=== PATIENT | female | born 1960 | race Caucasian/White ===

== ENCOUNTER 2016-05-26 09:39 | Emergency (ER) | payer OTHER, MEDICARE ==
[2016-05-26 09:58] LABS: ABSOLUTE BASOPHIL COUNT 0.1 /CUMM (0.0-0.2); ABSOLUTE EOSINOPHIL COUNT 0.5 /CUMM (0.0-0.7); ABSOLUTE GRANULOCYTE CT 5.1 /CUMM (1.4-6.5); ABSOLUTE LYMPH COUNT 4.3 /CUMM (1.2-3.4); ABSOLUTE MONOCYTE COUNT 0.5 /CUMM (0.10-0.60); BASOPHIL % 0.5 % (0.0-2.0); EOSINOPHIL % 4.9 % (0-5); GRANULOCYTE % 48.8 % (42.2-75.2); HEMATOCRIT 44.2 % (37-47); MEAN CORPUSCULAR HGB 29.6 PG (27.0-31.0); MEAN CORPUSCULAR HGB CONC 33.7 G/DL (33.0-37.0); MEAN CORPUSCULAR VOLUME 87.8 FL (81.0-99.0); MEAN PLATELET VOLUME 7.4 FL (7.4-10.4); PLATELET COUNT 284 /CUMM (130-400); RBC DISTRIBUTION WIDTH 13.5 % (11.5-14.5); RED BLOOD CELL CT 5.03 /CUMM (4.20-5.40); WHITE BLOOD CELL COUNT 10.5 /CUMM (4.8-10.8)
[2016-05-26 11:33] VITALS: BP 153/80
--- NOTE | 2016-05-26 12:11 | ED GI/GU/ABDOMINAL COMPLAINT ---
History of Present Illness General Chief Complaint: Abdominal Pain/Flank Pain Stated Complaint: R SIDE FLANK PAIN RADIATING INTO BACK Source: patient Exam Limitations: no limitations Vital Signs & Intake/Output Vital Signs & Intake/Output Vital Signs Date Time Temp Pulse Resp B/P Pulse O2 O2 Flow FiO2 Ox Delivery Rate 05/26 1133 99.1 91 153/80 98 Allergies Coded Allergies: NO KNOWN ALLERGIES (03/21/11) Reconcile Medications Tramadol HCl (Ultram) 50 MG TABLET 1 TAB PO TIDPRN PRN PAIN Triage Note: PT PRESENTS TO TRIAGE C/O OF RIGHT FLANK PAIN SINCE YESTERDAY EMMA. PT STATES SHE ALSO FEELS NAUSEOUS. PT STATES PAIN IS SHARP AND RADIATES FROM RIGHT FLANK TO RLQ. PT HAS NO MED HX Triage Nurses Notes Reviewed? yes ? n Is pt currently ? No HPI: 56-YEAR-OLD FEMALE WHO COMPLAINS OF 2 DAYS OF RIGHT-SIDED ABDOMINAL PAIN, right mid lower abdominal pain that radiates to the right flank. It is worse when she laughs and moves. She has mild nausea but she believes this is from the pain. There is no vomiting. She has had a good appetite. Pain started yesterday when she woke up, she was able to eat breakfast and this did not modify her symptoms. They have been constant. She had a hard time sleeping last night secondary to the pain. No previous abdominal pain or back pain, no weakness no numbness. She has a previous history of hysterectomy however no other abdominal surgery. Past History Travel History Traveled to [place] past 21 day No Medical History Any Pertinent Medical History? see below for history Neurological: NONE EENT: NONE Cardiovascular: NONE Respiratory: NONE Surgical History Surgical History: hysterectomy Psychosocial History What is your primary language Lao Tobacco Use: Never used Family History Hx Contributory? No Review of Systems Review of Systems Constitutional: Reports: see HPI. EENTM: Reports: no symptoms. Respiratory: Reports: no symptoms. Cardiovascular: Reports: no symptoms. GI: Reports: see HPI. Genitourinary: Reports: no symptoms. Musculoskeletal: Reports: no symptoms. Skin: Reports: no symptoms. Neurological/Psychological: Reports: no symptoms. Hematologic/Endocrine: Reports: no symptoms. Immunologic/Allergic: Reports: no symptoms. All Other Systems: Reviewed and Negative Physical Exam Physical Exam General Appearance: well developed/nourished Gastrointestinal: normal bowel sounds, soft, MINIMAL TENDERNESS INTO THE RIGHT FLANK AND RIGHT MID ABDOMINAL REGION, NO mCbURNEY'S POINT TENDERNESS, NEGATIVE Sanchez SIGN Comments: Well-developed well-nourished no apparent distress. HEENT: Atraumatic, extraocular motion intact Neck: Supple, no lymphadenopathy Back: Nontender Respiratory: No respiratory distress clear to auscultation bilaterally. Heart: Regular rate and rhythm no murmur Extremities: No edema, full range of motion Neuro: Alert and oriented x3 Psych: Mood affect normal, normal memory normal judgment. Skin: Warm and dry, no rash on exposed skin Core Measures ACS in differential dx? No Severe Sepsis Present: No Septic Shock Present: No Progress Differential Diagnosis: AAA, AMI, appendicitis, biliary colic, bowel obstruction , colon cancer, cholecystitis, diverticulitis, ectopic , endometritis, esophageal varices, gastritis, hepatitis, hernia, hemorrhoids, ischemic bowel, inflamm bowel dis, intrauterine , kidney stone, Sue-Jean-Paul tear, ovarian cyst, ovarian torsion, pancreatitis, PID/cervicitis, peptic ulcer, PUD/ GERD, perforated viscous, SBO, threatened AB, UTI/pyelo Plan of Care: Orders Procedure Date/time Status URINALYSIS 05/26 948 Complete COMPREHENSIVE METABOLIC PANEL 05/26 940 Complete CBC WITHOUT DIFFERENTIAL 05/26 940 Complete Laboratory Tests 05/26/16 1106: Urine Color YEL, Urine Clarity HAZY H, Urine pH 6.0, Ur Specific [place] >= 1.030, Urine Protein NEG, Urine Ketones NEG, Urine Nitrite NEG, Urine Bilirubin NEG, Urine Urobilinogen 0.2, Ur Leukocyte Esterase MOD H, Ur Microscopic SEDIMENT EXAMINED, Urine RBC 1-3, Urine WBC 5-10 H, Ur Epithelial Cells MOD H, Urine Hemoglobin NEG, Urine Glucose NEG 05/26/16 0952: Anion Gap 16, Estimated GFR > 60, BUN/Creatinine Ratio 13.8, Glucose 100 H, Calcium 10.0, Total Bilirubin 0.7, AST 30, ALT 55 H, Alkaline Phosphatase 76, Total Protein 8.1, Albumin 5.0, Globulin 3.1, Albumin/Globulin Ratio 1.6, CBC w Diff MAN DIFF ORDERED, RBC 5.03, MCV 87.8, MCH 29.6, RDW 13.5, MPV 7.4, Gran % 48.8, Lymphocytes % 41.1, Monocytes % 4.7, Eosinophils % 4.9, Basophils % 0.5, Absolute Granulocytes 5.1, Absolute Lymphocytes 4.3 H, Absolute Monocytes 0.5, Absolute Eosinophils 0.5, Absolute Basophils 0.1, Platelet Estimate ADEQUATE, Normocytic RBCs VERIFIED, Normochromic RBCs VERIFIED, PUBS MCHC 33.7 Diagnostic Imaging: Viewed by Me: CT Scan, Ultrasound. Discussed w/RAD: CT Scan, Ultrasound. Radiology Impression: PATIENT: HOMER YEPEZ PRESENT AGE : 56 PATIENT ACCOUNT NO: [id number] : 60 LOCATION: ER ORDERING PHYSICIAN: CARYN FITZGERALD SERVICE DATE: 05/26/16 EXAM TYPE: US - US -LIMITED ABDOMEN EXAMINATION: US ABDOMEN LIMITED CLINICAL INFORMATION: Right- sided abdominal pain. Right flank pain.. COMPARISON: CT 08/08/2012 TECHNIQUE: Real-time imaging of the right upper quadrant abdominal viscera. FINDINGS: PANCREAS: The pancreatic head and body appear unremarkable. The tail is obscured by gas. LIVER: Normal. The liver demonstrates normal size, contour and echogenicity. No focal lesion or intrahepatic biliary duct dilatation. GALLBLADDER: Normal. The gallbladder is physiologically distended without evidence of stones, sludge, polyps, wall thickening or pericholecystic fluid. COMMON BILE DUCT: Normal in caliber measuring 0.3 cm in diameter. RIGHT KIDNEY: Normal. No hydronephrosis. No renal calculi or focal parenchymal lesions. The kidney measures 11 cm in maximum dimension. FREE FLUID: None. IMPRESSION: Unremarkable right upper quadrant ultrasound. DICTATED BY: BRITTNY LENTZ,DALJIT DATE/TIME DICTATED:05/26/161304 SWITCHBOARD INSTALLER:PALM , PATIENT: HOMER YEPEZ PRESENT AGE: 56 PATIENT ACCOUNT NO: [id number] : 60 LOCATION: ER ORDERING PHYSICIAN: CARYN FITZGERALD SERVICE DATE: 05/26/16 EXAM TYPE: CAT - CT ABD & PELVIS W/O IV CONTRAS EXAMINATION: CT ABDOMEN AND PELVIS WITHOUT CONTRAST CLINICAL INFORMATION: Right-sided flank pain. Right abdominal pain. COMPARISON: 08/08/2012 TECHNIQUE: Multidetector volumetric imaging was performed from the superior aspect of the liver through the pubic symphysis. Sagittal and coronal reformatted images were obtained on the technologist's workstation. DLP: 379 mGy-cm. FINDINGS: LUNG BASES: Minimal bibasilar atelectasis. The visualized cardiac structures are unremarkable. LIVER, GALLBLADDER, AND BILIARY TREE: The liver is normal in size and shape with decreased attenuation. No focal hepatic lesion or biliary ductal dilatation is present. The gallbladder is unremarkable with no evidence of radiopaque gallstones, gallbladder wall thickening, or obvious pericholecystic inflammatory changes. PANCREAS: Unremarkable. SPLEEN: Unremarkable. ADRENAL GLANDS: Unremarkable. KIDNEYS AND URETERS: The kidneys are normal in size, shape, and attenuation. No hydronephrosis, hydroureter, or calculi seen. No perinephric stranding. BLADDER: Unremarkable. GASTROINTESTINAL TRACT: Small hiatal hernia. The small bowel is unremarkable. No dilated loops of bowel or evidence of obstruction. Normal appendix. No colonic wall thickening or inflammatory change. There is a moderate stool burden of the right hemicolon. No free air or free fluid. ABDOMINAL WALL: No significant hernia is appreciated. LYMPH NODES: Normal. VASCULAR: Retrograde aortic left renal vein. PELVIC VISCERA: The uterus is not seen. No adnexal mass. OSSEOUS STRUCTURES: No acute or suspicious osseous abnormality. Mild degenerative changes of the spine. IMPRESSION: No acute findings of the abdomen or pelvis. No hydronephrosis or nephrolithiasis. Normal appendix. Moderate stool burden of the right hemicolon. Hepatic steatosis. DICTATED BY: BRITTNY LENTZ,DALJIT DATE/TIME DICTATED:05/26/16 / 1343 SWITCHBOARD INSTALLER:MERLE DATE/TIME TRANSCRIBED:05/26/16 Initial ED EKG: none Comments: Obtain ultrasound right upper quadrant right side renal for evaluation of gallbladder disease or hydronephrosis. She with Toradol 30 mg IM. Ultrasound and labs are unremarkable, urinalysis is a dirty specimen but there is moderate bacteria. Patient reevaluated and feels no better after Toradol, we 'll CT scan abdomen and pelvis to evaluate for kidney stone or intra-abdominal infection. CT scan shows likely constipation right-side of the colon, discussed with patient, she is comfortable and will be discharged home, recommend treatment for constipation as directed. Departure Departure Disposition: HOME OR SELF CARE Condition: Stable Clinical Impression Primary Impression: Abdominal pain Qualifiers: Abdominal location: right upper quadrant Qualified Code: R10.11 - Right upper quadrant pain Secondary Impressions: Constipation Qualifiers: Constipation type: other constipation type Qualified Code: K59.09 - Other constipation Referrals: PATIENT HAS NO PRIMARY CARE DR (PCP/Family) Additional Instructions: Take tramadol for abdominal pain Increase fiber in your diet, increase fruits and vegetables, increase activity, increased water, you can take stool softeners [id number], Colace and Senokot as well as fiber supplementation such as Metamucil Departure Forms: Customer Survey General Discharge Information Prescriptions: Current Visit Scripts Tramadol HCl (Ultram) 1 TAB PO TIDPRN PRN PAIN #10 TAB
--- NOTE | 2016-05-26 13:11 | ULTRASOUND REPORT ---
EXAMINATION: US ABDOMEN LIMITED CLINICAL INFORMATION: Right-sided abdominal pain. Right flank pain.. COMPARISON: CT 08/08/2012 TECHNIQUE: Real-time imaging of the right upper quadrant abdominal viscera. FINDINGS: PANCREAS: The pancreatic head and body appear unremarkable. The tail is obscured by gas. LIVER: Normal. The liver demonstrates normal size, contour and echogenicity. No focal lesion or intrahepatic biliary duct dilatation. GALLBLADDER: Normal. The gallbladder is physiologically distended without evidence of stones, sludge, polyps, wall thickening or pericholecystic fluid. COMMON BILE DUCT: Normal in caliber measuring 0.3 cm in diameter. RIGHT KIDNEY: Normal. No hydronephrosis. No renal calculi or focal parenchymal lesions. The kidney measures 11 cm in maximum dimension. FREE FLUID: None. IMPRESSION: Unremarkable right upper quadrant ultrasound.
--- NOTE | 2016-05-26 13:50 | CT SCAN REPORT ---
EXAMINATION: CT ABDOMEN AND PELVIS WITHOUT CONTRAST CLINICAL INFORMATION: Right-sided flank pain. Right abdominal pain. COMPARISON: 08/08/2012 TECHNIQUE: Multidetector volumetric imaging was performed from the superior aspect of the liver through the pubic symphysis. Sagittal and coronal reformatted images were obtained on the technologist's workstation. DLP: 379 mGy-cm. FINDINGS: LUNG BASES: Minimal bibasilar atelectasis. The visualized cardiac structures are unremarkable. LIVER, GALLBLADDER, AND BILIARY TREE: The liver is normal in size and shape with decreased attenuation. No focal hepatic lesion or biliary ductal dilatation is present. The gallbladder is unremarkable with no evidence of radiopaque gallstones, gallbladder wall thickening, or obvious pericholecystic inflammatory changes. PANCREAS: Unremarkable. SPLEEN: Unremarkable. ADRENAL GLANDS: Unremarkable. KIDNEYS AND URETERS: The kidneys are normal in size, shape, and attenuation. No hydronephrosis, hydroureter, or calculi seen. No perinephric stranding. BLADDER: Unremarkable. GASTROINTESTINAL TRACT: Small hiatal hernia. The small bowel is unremarkable. No dilated loops of bowel or evidence of obstruction. Normal appendix. No colonic wall thickening or inflammatory change. There is a moderate stool burden of the right hemicolon. No free air or free fluid. ABDOMINAL WALL: No significant hernia is appreciated. LYMPH NODES: Normal. VASCULAR: Retrograde aortic left renal vein. PELVIC VISCERA: The uterus is not seen. No adnexal mass. OSSEOUS STRUCTURES: No acute or suspicious osseous abnormality. Mild degenerative changes of the spine. IMPRESSION: No acute findings of the abdomen or pelvis. No hydronephrosis or nephrolithiasis. Normal appendix. Moderate stool burden of the right hemicolon. Hepatic steatosis.
[2016-05-26] MEDS ORDERED: ULTRAM50 M1 PO (13:58)
== END 2016-05-26 14:10 ==
LOC: ERH 09:39
PROVIDERS: Emergency Medicine
DX: R10.9 Unspecified abdominal pain (principal); K59.00 Constipation, unspecified
CPT/HCPCS: 74176; 81001; 96372; J1885

== ENCOUNTER 2017-07-30 07:17 | Inpatient (IN) | payer OTHER, MEDICARE ==
[~2017-07-30] VITALS: Ht 174 cm; Wt 88.5 kg
[~2017-07-30 07:17] MED LIST: ULTRAM50 M1 PO
--- NOTE | 2017-07-30 08:21 | ED GI/GU/ABDOMINAL COMPLAINT ---
History of Present Illness General Chief Complaint: Abdominal Pain/Flank Pain Stated Complaint: LOWER ABD PAIN Source: patient, family, old records Exam Limitations: no limitations Vital Signs & Intake/Output Vital Signs & Intake/Output Vital Signs Date Time Temp Pulse Resp B/P B/P Pulse O2 O2 Flow FiO2 Mean Ox Delivery Rate 07/30 0719 98.3 110 16 167/94 97 Room Air Allergies Coded Allergies: NO KNOWN ALLERGIES (03/21/11) Reconcile Medications Tramadol HCl (Ultram) 50 MG TABLET 1 TAB PO TIDPRN PRN PAIN Triage Note: COMPLAINS OF LOW ABD PRESSURE THAT STARTED LAST PM, PAIN IS CONSTANT AND DESCRIBES A PRESSURE. DENIES N/V/D . LBM THIS AM AND NORMAL FOR HER. DENIES URINARY SYMPTOMS Triage Nurses Notes Reviewed? yes ? N Is pt currently ? No HPI: Sudden onset of bilateral lower quadrant crampy pain that started last evening watching TV. The pain is kept her up all night. There are no aggravating or mitigating factors. There is no radiation. Slight nausea but no vomiting. No constipation or diarrhea. No dysuria or hematuria. No fevers or chills. She rates the pain a 10 out of 10. Past History Travel History Traveled to [place] past 21 day No Medical History Any Pertinent Medical History? none Neurological: NONE EENT: NONE Cardiovascular: NONE Respiratory: NONE Gastrointestinal: NONE Hepatic: NONE Renal: NONE Musculoskeletal: NONE Psychiatric: NONE Blood Disorders: NONE Cancer(s): NONE ROLL PANNER/Reproductive: NONE Surgical History Surgical History: hysterectomy Psychosocial History What is your primary language Portuguese Tobacco Use: Never used ETOH Use: denies use Illicit Drug Use: denies illicit drug use Family History Hx Contributory? No Review of Systems Review of Systems Constitutional: Reports: no symptoms. EENTM: Reports: no symptoms. Respiratory: Reports: no symptoms. Cardiovascular: Reports: no symptoms. GI: Reports: see HPI, abdominal pain. Genitourinary: Reports: no symptoms. Musculoskeletal: Reports: no symptoms. Skin: Reports: no symptoms. Neurological/Psychological: Reports: no symptoms. Hematologic/Endocrine: Reports: no symptoms. Immunologic/Allergic: Reports: no symptoms. All Other Systems: Reviewed and Negative Physical Exam Physical Exam General Appearance: well developed/nourished, alert, awake, anxious, moderate distress Head: atraumatic, normal appearance Eyes: Bilateral: PERRL, EOMI. Ears, Nose, Throat, Mouth: hearing grossly normal, moist mucous membrane Neck: normal inspection, supple, full range of motion Respiratory: normal breath sounds, chest non-tender, no respiratory distress, lungs clear Cardiovascular: regular rate/rhythm, normal peripheral pulses Gastrointestinal: normal bowel sounds, soft, no organomegaly, tenderness (RLQ, LLQ, SUPRPUBIC), NO REBOUND OR GUARDING Back: normal inspection, normal range of motion, NO CVA TENDERNESS Extremities: normal range of motion Neurologic/Psych: no motor/sensory deficits, awake, alert, oriented x 3, normal mood/affect Skin: intact, normal color, warm/dry Core Measures ACS in differential dx? No Sepsis Present: No Sepsis Focused Exam Completed? No Progress Differential Diagnosis: appendicitis, bowel obstruction, diverticulitis, ischemic bowel, inflamm bowel dis, kidney stone, pancreatitis, SBO, UTI/pyelo Plan of Care: Orders Procedure Date/time Status Clear Liquid Diet 07/30 L Active ED Holding Orders 07/30 1033 Active Admit to inpatient 07/30 1033 Active Vital Signs 07/30 1033 Active Code Status 07/30 1033 Active LIPASE 07/30 0725 Complete COMPREHENSIVE METABOLIC PANEL 07/30 0725 Complete CBC WITHOUT DIFFERENTIAL 07/30 0725 Complete AMYLASE 07/30 0725 Complete URINALYSIS 07/30 0721 Complete Current Medications Sig/Marixa Start time Last Medication Dose Stop Time Status Admin Morphine Sulfate 4 MG ONCE ONE 07/30 1045 AC (MORPHINE SULFATE) 07/30 1046 Ampicillin Sodium/ 3,000 MG ONCE ONE 07/30 1015 AC Sulbactam Sodium 07/30 1044 (Unasyn) Sodium Chloride 100 ML (Normal Saline 0.9%) Laboratory Tests 07/30/17 0815: Anion Gap 12, Estimated GFR > 60, BUN/Creatinine Ratio 18.6, Glucose 110 H, Calcium 10.3 H, Total Bilirubin 0.7, AST 32, ALT 46, Alkaline Phosphatase 73, Total Protein 7.8, Albumin 4.8, Globulin 3.0, Albumin/Globulin Ratio 1.6, Amylase 51, Lipase 74, CBC w Diff MAN DIFF ORDERED, RBC 4.69, MCV 87.8, MCH 29.5 , MCHC 33.6, RDW 14.5, MPV 7.9, Gran % 74.4, Lymphocytes % 17.9 L, Monocytes % 5.8, Eosinophils % 1.6, Basophils % 0.3, Absolute Granulocytes 12.3 H, Segmented Neutrophils 71, Band Neutrophils 6 H, Absolute Lymphocytes 3.0, Lymphocytes 18 L, Monocytes 5, Absolute Monocytes 1.0 H, Absolute Eosinophils 0.3, Absolute Basophils 0, Platelet Estimate VERIFIED BY SMEAR, Stomatocytes 1+ 07/30/17 0759: Urine Color YEL, Urine Clarity CLEAR, Urine pH 5.5, Ur Specific [place] 1.025, Urine Protein NEG, Urine Ketones NEG, Urine Nitrite NEG, Urine Bilirubin NEG, Urine Urobilinogen 0.2, Ur Leukocyte Esterase NEG, Ur Microscopic EXAM NOT REQUIRED, Urine Hemoglobin NEG, Urine Glucose NEG Diagnostic Imaging: Viewed by Me: CT Scan. Discussed w/RAD: CT Scan. Radiology Impression: PATIENT: HOMER YEPEZ PRESENT AGE : 57 PATIENT ACCOUNT NO: [id number] : 60 LOCATION: [facility] ORDERING PHYSICIAN: Tomy Tobias MD SERVICE DATE: 07/30/17 EXAM TYPE: CAT - CT ABD & PELVIS W IV CONTRAST EXAMINATION: CT ABDOMEN AND PELVIS WITH CONTRAST CLINICAL INFORMATION: Right lower quadrant and left lower quadrant abdominal pain. COMPARISON: 08/08/12. TECHNIQUE: Multidetector volumetric imaging was performed of the abdomen and pelvis following IV administration of 95 mL of Optiray 320 intravenous contrast. Sagittal and coronal reformatted images were obtained on the technologist's workstation. DLP: 418.16 mGy-cm FINDINGS: LUNG BASES: There is minimal bibasilar subsegmental atelectasis. Otherwise unremarkable. LIVER, GALLBLADDER, AND BILIARY TREE: The liver has diffuse low- attenuation consistent with hepatic steatosis. No focal lesion is demonstrated. There is no intrahepatic ductal dilatation. Liver size is unremarkable. The gallbladder is unremarkable with no evidence of radiopaque gallstones, gallbladder wall thickening, or obvious pericholecystic inflammatory changes. PANCREAS: The pancreas is mildly atrophic. No focal abnormality. No ductal dilatation. SPLEEN: Unremarkable. 2 small accessory splenules are noted. ADRENAL GLANDS: Unremarkable. KIDNEYS AND URETERS: The kidneys are normal in size, shape , and attenuation. No hydronephrosis, hydroureter, or calculi seen. No perinephric stranding. BLADDER: Unremarkable. GASTROINTESTINAL TRACT: Inflammatory changes are present in the distal descending and sigmoid colon with pericolonic fat stranding. There is a tiny collection of air along the medial wall of the sigmoid colon which could be within a diverticulum or in a small focal contained perforation. No extraluminal fluid is demonstrated. There is diffuse thickening of the wall of the sigmoid colon consistent with inflammatory change. Scattered colonic diverticula are present. The remainder the colon is unremarkable. The appendix is normal. There is a small sliding hiatal hernia. The stomach and duodenum are otherwise unremarkable. No abnormality of the small bowel or mesentery is demonstrated. ABDOMINAL WALL: No significant hernia is appreciated. LYMPH NODES: Normal. VASCULAR: Unremarkable. Incidental note is made of a left retroaortic renal vein. PELVIC VISCERA: The uterus and ovaries are not visualized and presumed to be surgically absent. OSSEOUS STRUCTURES: Mild multilevel spondylosis. No suspicious abnormality. IMPRESSION: 1. Inflammatory changes in the distal descending and sigmoid colon with thickening of the inflamed loop with pericolonic fat stranding. Tiny collection of air could be within a diverticulum or within a focal contained microperforation. If not recently performed, colonoscopy when the patient is improved is suggested to rule out underlying neoplastic lesion at this location. 2. Small sliding hiatal hernia. 3. Hepatic steatosis. DICTATED BY: Brian Peters MD DATE/TIME DICTATED:07/30/17957 ENDS DOWN CHECKER:MERLE DATE/TIME TRANSCRIBED:957 CONFIDENTIAL, DO NOT COPY WITHOUT APPROPRIATE AUTHORIZATION. < Electronically signed in Other Vendor System> SIGNED BY: Brian Peters MD 07/30/17 1020 Initial ED EKG: none Comments: PAIN DECREASED TO 4 OUT OF 10 AFTER TORADOL AND NAUSEA HAS RESOLVED AFTER ZOFRAN. PT DOES NOT WANT ANYTHING ELSE FOR PAIN AT THIS POINT. Departure Departure Disposition: STILL A PATIENT Condition: Stable Clinical Impression Primary Impression: Diverticulitis of colon with perforation Referrals: Patient Has No Primary Care Dr (PCP/Family) Departure Forms: Customer Survey General Discharge Information Admission Note Spoke With: Benigno LENTZ,Jh Madera Documentation of Exam: Documentation of any treatments & extenuating circumstances including Concerns Regarding Discharge (functional status, medication knowledge or non-compliance, living conditions, etc.) that warrant an admission rather than observation: [ CLEAR LIQUIDS, PAIN CONTROL, IV HYDRATION, MAY REQUIRE SURGICAL INTERVENTION IF SYMPTOMS WORSEN]
[2017-07-30 08:40] LABS: ABSOLUTE BASOPHIL COUNT 0 /CUMM (0.0-0.2); ABSOLUTE EOSINOPHIL COUNT 0.3 /CUMM (0.0-0.7); ABSOLUTE GRANULOCYTE CT 12.3 /CUMM (1.4-6.5); BASOPHIL % 0.3 % (0.0-2.0); EOSINOPHIL % 1.6 % (0-5); HEMATOCRIT 41.2 % (37-47); MEAN CORPUSCULAR HGB 29.5 PG (27.0-31.0); MEAN CORPUSCULAR HGB CONC 33.6 G/DL (33.0-37.0); MEAN CORPUSCULAR VOLUME 87.8 FL (81.0-99.0); MEAN PLATELET VOLUME 7.9 FL (7.4-10.4); PLATELET COUNT 278 /CUMM (130-400); RBC DISTRIBUTION WIDTH 14.5 % (11.5-14.5); RED BLOOD CELL CT 4.69 /CUMM (4.20-5.40); WHITE BLOOD CELL COUNT 16.5 /CUMM (4.8-10.8)
[2017-07-30 08:44] LABS: GRANULOCYTE % 74.4 % (42.2-75.2)
--- NOTE | 2017-07-30 10:20 | CT SCAN REPORT ---
EXAMINATION: CT ABDOMEN AND PELVIS WITH CONTRAST CLINICAL INFORMATION: Right lower quadrant and left lower quadrant abdominal pain. COMPARISON: 08/08/12. TECHNIQUE: Multidetector volumetric imaging was performed of the abdomen and pelvis following IV administration of 95 mL of Optiray 320 intravenous contrast. Sagittal and coronal reformatted images were obtained on the technologist's workstation. DLP: 418.16 mGy-cm FINDINGS: LUNG BASES: There is minimal bibasilar subsegmental atelectasis. Otherwise unremarkable. LIVER, GALLBLADDER, AND BILIARY TREE: The liver has diffuse low-attenuation consistent with hepatic steatosis. No focal lesion is demonstrated. There is no intrahepatic ductal dilatation. Liver size is unremarkable. The gallbladder is unremarkable with no evidence of radiopaque gallstones, gallbladder wall thickening, or obvious pericholecystic inflammatory changes. PANCREAS: The pancreas is mildly atrophic. No focal abnormality. No ductal dilatation. SPLEEN: Unremarkable. 2 small accessory splenules are noted. ADRENAL GLANDS: Unremarkable. KIDNEYS AND URETERS: The kidneys are normal in size, shape, and attenuation. No hydronephrosis, hydroureter, or calculi seen. No perinephric stranding. BLADDER: Unremarkable. GASTROINTESTINAL TRACT: Inflammatory changes are present in the distal descending and sigmoid colon with pericolonic fat stranding. There is a tiny collection of air along the medial wall of the sigmoid colon which could be within a diverticulum or in a small focal contained perforation. No extraluminal fluid is demonstrated. There is diffuse thickening of the wall of the sigmoid colon consistent with inflammatory change. Scattered colonic diverticula are present. The remainder the colon is unremarkable. The appendix is normal. There is a small sliding hiatal hernia. The stomach and duodenum are otherwise unremarkable. No abnormality of the small bowel or mesentery is demonstrated. ABDOMINAL WALL: No significant hernia is appreciated. LYMPH NODES: Normal. VASCULAR: Unremarkable. Incidental note is made of a left retroaortic renal vein. PELVIC VISCERA: The uterus and ovaries are not visualized and presumed to be surgically absent. OSSEOUS STRUCTURES: Mild multilevel spondylosis. No suspicious abnormality. IMPRESSION: 1. Inflammatory changes in the distal descending and sigmoid colon with thickening of the inflamed loop with pericolonic fat stranding. Tiny collection of air could be within a diverticulum or within a focal contained microperforation. If not recently performed, colonoscopy when the patient is improved is suggested to rule out underlying neoplastic lesion at this location. 2. Small sliding hiatal hernia. 3. Hepatic steatosis.
--- NOTE | 2017-07-30 11:27 | Admission Core Measures ---
Acute Coronary Syndrome (CM) ACS Core Measures Acute Coronary Syndrome Diagnosis No Congestive Heart Failure (NEW) CHF Core Measures Congestive Heart Failure Diagnosis No Cerebrovascular Accident (NEW) CVA Core Measures CVA/TIA Diagnosis No Venous Thromboembolism VTE Core Juan Manuel (View Protocol) VTE Risk Factors Acute Medical Illness No Mechanical VTE Prophylaxis d/t N/A MechProphylax Ordered No VTE Pharm Prophylaxis d/t NA PharmProphylax ordered Problem List As ranked by this Provider includes Assessment & Plan 1. Diverticulitis of colon with perforation HOME MEDS Home Med List Tramadol HCl (Ultram) 50 MG TABLET 1 TAB PO TIDPRN PRN PAIN
--- NOTE | 2017-07-30 11:27 | History & Physical Pre-Op ---
Mary Jo Morales 07/30/17 1122: General Information and HPI History of Present Illness: 57yoF presents to ED with complaints of crampy lower abdominal pain that began 12hrs ago. She admits to feeling "blah" over the last fews days and has noticed a decrease in her energy level. Denies fever/chills at home, and hasn't had any nausea or vomiting. She has never had this pain before and has no diagnosis of diverticular disease. She has never had a colonoscopy. Her last meal was soup last evening, last BM was a small amount this am. Denies changes in urination. no family hx of gi disorders or colon ca. Allergies/Medications Allergies: Coded Allergies: NO KNOWN ALLERGIES (03/21/11) Home Med list Ascorbate Calcium (Vitamin C) (Unknown Strength) TABLET (Unknown Dose) PO DAILY SUPPLEMENT (Reported) Cider Vinegar (Apple Cider Vinegar) (Unknown Strength) TABLET (Unknown Dose) PO DAILY SUPPLEMENT (Reported) Multiple Vitamin (Multivitamins) 1 EACH TABLET 1 TAB PO DAILY SUPPLEMENT ( Reported) Past History Medical History EENT: hearing loss, meniere's disease Cardiovascular: NONE Respiratory: NONE Gastrointestinal: GERD Blood Disorders: NONE Cancer(s): NONE Surgical History Pertinent Surgical History: hysterectomy (in late 20s) Past Family/Social History Family History Relations & Conditions if any MOTHER Coronary artery disease FATHER FH: diabetes mellitus Psychosocial History Smoking Status: Never Smoked ETOH Use: denies use Illicit Drug Use: denies illicit drug use Functional Ability Ambulation: independent Exam & Diagnostic Data Last 24 Hrs of Vital Signs/I&O Vital Signs Date Time Temp Pulse Resp B/P B/P Pulse O2 O2 Flow FiO2 Mean Ox Delivery Rate 07/30 1041 98.4 108 18 146/68 95 Room Air 07/30 0719 98.3 110 16 167/94 97 Room Air Intake & Output 07/30 1600 07/30 0800 07/30 0000 Intake Total 1100 Output Total Balance 1100 Intake, IV 1100 Patient 195 lb Weight Physical Exam: GEN- NAD CARD-S1S2 RRR PULM-CTAB ABD- soft, ttp suprapubic L>R, no r/g, +bs EXT- calves soft nt bl Last 24 Hrs of Labs/[place]: Laboratory Tests 07/30/17 0815: Anion Gap 12, Estimated GFR > 60, BUN/Creatinine Ratio 18.6, Glucose 110 H, Calcium 10.3 H, Total Bilirubin 0.7, AST 32, ALT 46, Alkaline Phosphatase 73, Total Protein 7.8, Albumin 4.8, Globulin 3.0, Albumin/Globulin Ratio 1.6, Amylase 51, Lipase 74, CBC w Diff MAN DIFF ORDERED, RBC 4.69, MCV 87.8, MCH 29.5 , MCHC 33.6, RDW 14.5, MPV 7.9, Gran % 74.4, Lymphocytes % 17.9 L, Monocytes % 5.8, Eosinophils % 1.6, Basophils % 0.3, Absolute Granulocytes 12.3 H, Segmented Neutrophils 71, Band Neutrophils 6 H, Absolute Lymphocytes 3.0, Lymphocytes 18 L, Monocytes 5, Absolute Monocytes 1.0 H, Absolute Eosinophils 0.3, Absolute Basophils 0, Platelet Estimate VERIFIED BY SMEAR, Stomatocytes 1+ 07/30/17 0759: Urine Color YEL, Urine Clarity CLEAR, Urine pH 5.5, Ur Specific [place] 1.025, Urine Protein NEG, Urine Ketones NEG, Urine Nitrite NEG, Urine Bilirubin NEG, Urine Urobilinogen 0.2, Ur Leukocyte Esterase NEG, Ur Microscopic EXAM NOT REQUIRED, Urine Hemoglobin NEG, Urine Glucose NEG Diagnostic Data Other Results SERVICE DATE: 07/30/17 EXAM TYPE: CAT - CT ABD & PELVIS W IV CONTRAST EXAMINATION: CT ABDOMEN AND PELVIS WITH CONTRAST CLINICAL INFORMATION: Right lower quadrant and left lower quadrant abdominal pain. COMPARISON: 08/08/12. TECHNIQUE: Multidetector volumetric imaging was performed of the abdomen and pelvis following IV administration of 95 mL of Optiray 320 intravenous contrast. Sagittal and coronal reformatted images were obtained on the technologist's workstation. DLP: 418.16 mGy-cm FINDINGS: LUNG BASES: There is minimal bibasilar subsegmental atelectasis. Otherwise unremarkable. LIVER, GALLBLADDER, AND BILIARY TREE: The liver has diffuse low-attenuation consistent with hepatic steatosis. No focal lesion is demonstrated. There is no intrahepatic ductal dilatation. Liver size is unremarkable. The gallbladder is unremarkable with no evidence of radiopaque gallstones, gallbladder wall thickening, or obvious pericholecystic inflammatory changes. PANCREAS: The pancreas is mildly atrophic. No focal abnormality. No ductal dilatation. SPLEEN: Unremarkable. 2 small accessory splenules are noted. ADRENAL GLANDS: Unremarkable. KIDNEYS AND URETERS: The kidneys are normal in size, shape, and attenuation. No hydronephrosis, hydroureter, or calculi seen. No perinephric stranding. BLADDER: Unremarkable. GASTROINTESTINAL TRACT: Inflammatory changes are present in the distal descending and sigmoid colon with pericolonic fat stranding. There is a tiny collection of air along the medial wall of the sigmoid colon which could be within a diverticulum or in a small focal contained perforation. No extraluminal fluid is demonstrated. There is diffuse thickening of the wall of the sigmoid colon consistent with inflammatory change. Scattered colonic diverticula are present. The remainder the colon is unremarkable. The appendix is normal. There is a small sliding hiatal hernia. The stomach and duodenum are otherwise unremarkable. No abnormality of the small bowel or mesentery is demonstrated. ABDOMINAL WALL: No significant hernia is appreciated. LYMPH NODES: Normal. VASCULAR: Unremarkable. Incidental note is made of a left retroaortic renal vein. PELVIC VISCERA: The uterus and ovaries are not visualized and presumed to be surgically absent. OSSEOUS STRUCTURES: Mild multilevel spondylosis. No suspicious abnormality. IMPRESSION: 1. Inflammatory changes in the distal descending and sigmoid colon with thickening of the inflamed loop with pericolonic fat stranding. Tiny collection of air could be within a diverticulum or within a focal contained microperforation. If not recently performed, colonoscopy when the patient is improved is suggested to rule out underlying neoplastic lesion at this location. 2. Small sliding hiatal hernia. 3. Hepatic steatosis. Assessment/Plan Assessment/Plan: A- 57yoF with acute sigmoid diverticulitis with contained microperforation and leukocytosis of 16K, otherwise stable P- -admit to surgical service, Dr. Pelaez -requires inpatient status due to need for IV abx, IV hydration, NPO, serial exams, serial labs -dvt ppx -will dw Dr. Pelaez As Ranked By This Provider Problem List: 1. Diverticulitis of colon with perforation Jh Pelaez MD 07/30/17 1545: Attending MD Review Statement Attending Statement Attending Statement: examined this patient, discuss w/resident/PA/[employer], reviewed images Attending Assessment/Plan: Agree with above. 57yo woman with first episode clinical diverticulitis with microperforation. No clinical indication for surgery now. plan medical management with bowel reset and iv broad spectrum abx. Anticipate 2 day stay. Outpatient colonoscopy after recovered 6-8 weeks.
[2017-07-30] MEDS ORDERED: VITAMIN C500 M6 PO (11:47)
[2017-07-30] MEDS ORDERED: MULTIVITAMINS1 EAC9 PO (11:48)
[2017-07-30] MEDS ORDERED: APPLE CIDER VI300 MG PO (11:48)
[2017-07-30 14:53] VITALS: BP 118/78
[2017-07-30 22:07] VITALS: BP 122/78
[2017-07-31 05:44] VITALS: BP 118/74
--- NOTE | 2017-07-31 07:36 | PN- General Surgery ---
See Addendum Subjective Subjective: No change in the left lower quadrant and suprapubic abdominal pain. States she believes she had fever overnight. She has a headache/migraine which is common for her with lack of coffee. Mild nausea, no vomiting, positive flatus Objective Vital Signs and I&Os Vital Signs Date Time Temp Pulse Resp B/P B/P Pulse O2 O2 Flow FiO2 Mean Ox Delivery Rate 07/31 0544 98.9 100 20 118/74 93 Room Air 07/30 2207 98.0 100 18 122/78 92 Room Air 07/30 1453 98.7 100 18 118/78 97 Room Air 07/30 1303 94 16 134/69 95 Room Air 07/30 1041 98.4 108 18 146/68 95 Room Air Intake & Output 07/31 0800 07/31 0000 07/30 1600 07/30 0800 07/30 0000 07/29 1600 Intake Total 8569 872 4737 Output Total 300 500 Balance 935 451 3597 Intake, IV 1640 042 3190 Intake, Oral 0 Output, Urine 300 500 Patient 195 lb 195 lb Weight Weight Reported by Patient Measurement Method Physical Exam: Well-developed well-nourished no apparent distress. HEENT: Atraumatic, extraocular motion intact Neck: Supple, no lymphadenopathy Respiratory: No respiratory distress Abdomen: Minimal distention, tenderness in the suprapubic and left lower quadrant. Abdomen is soft, no peritoneal signs, positive bowel sounds Extremities: No edema, no calf pain Neuro: Alert and oriented x3 Psych: Mood affect normal, normal memory normal judgment. Skin: Warm and dry, no rash on exposed skin Results Last 48 Hours of Labs: Laboratory Tests 07/30 0815 Chemistry Sodium (137 - 145 mmol/L) 139 Potassium (3.5 - 5.1 mmol/L) 4.4 Chloride (98 - 107 mmol/L) 102 Carbon Dioxide (22 - 30 mmol/L) 26 Anion Gap (5 - 16) 12 BUN (7 - 17 mg/dL) 13 Creatinine (0.5 - 1.0 mg/dL) 0.7 Estimated GFR (>60 ml/min) > 60 BUN/Creatinine Ratio (7 - 25 %) 18.6 Glucose (65 - 99 mg/dL) 110 H Calcium (8.4 - 10.2 mg/dL) 10.3 H Total Bilirubin (0.2 - 1.3 mg/dL) 0.7 AST (14 - 36 U/L) 32 ALT (9 - 52 U/L) 46 Alkaline Phosphatase (<127 U/L) 73 Total Protein (6.3 - 8.2 g/dL) 7.8 Albumin (3.5 - 5.0 g/dL) 4.8 Globulin (1.9 - 4.2 gm/dL) 3.0 Albumin/Globulin Ratio (1.1 - 2.2 %) 1.6 Amylase (30 - 110 U/L) 51 Lipase (23 - 300 U/L) 74 Hematology CBC w Diff MAN DIFF ORDERED WBC (4.8 - 10.8 /CUMM) 16.5 H RBC (4.20 - 5.40 /CUMM) 4.69 Hgb (12.0 - 16.0 G/DL) 13.8 Hct (37 - 47 %) 41.2 MCV (81.0 - 99.0 FL) 87.8 MCH (27.0 - 31.0 PG) 29.5 MCHC (33.0 - 37.0 G/DL) 33.6 RDW (11.5 - 14.5 %) 14.5 Plt Count (130 - 400 /CUMM) 278 MPV (7.4 - 10.4 FL) 7.9 Gran % (42.2 - 75.2 %) 74.4 Lymphocytes % (20.5 - 51.1 %) 17.9 L Monocytes % (1.7 - 9.3 %) 5.8 Eosinophils % (0 - 5 %) 1.6 Basophils % (0.0 - 2.0 %) 0.3 Absolute Granulocytes (1.4 - 6.5 /CUMM) 12.3 H Segmented Neutrophils (42.2 - 75.2 %) 71 Band Neutrophils (0.0 - 5.0 %) 6 H Absolute Lymphocytes (1.2 - 3.4 /CUMM) 3.0 Lymphocytes (20.5 - 51.1 %) 18 L Monocytes (1.7 - 9.3 %) 5 Absolute Monocytes (0.10 - 0.60 /CUMM) 1.0 H Absolute Eosinophils (0.0 - 0.7 /CUMM) 0.3 Absolute Basophils (0.0 - 0.2 /CUMM) 0 Platelet Estimate (ADEQUATE) VERIFIED BY SMEAR Stomatocytes + 07/30 2199 Urines Urine Color (YEL,AMB,STR) YEL Urine Clarity (CLEAR) CLEAR Urine pH (5.0 - 8.0) 5.5 Ur Specific [place] (1.001 - 1.035) 1.025 Urine Protein (NEG,<30 MG/DL) NEG Urine Ketones (NEG) NEG Urine Nitrite (NEG) NEG Urine Bilirubin (NEG) NEG Urine Urobilinogen (0.1 - 1.0 EU/dl) 0.2 Ur Leukocyte Esterase (NEG) NEG Ur Microscopic EXAM NOT REQUIRED Urine Hemoglobin (NEG) NEG Urine Glucose (N MG/DL) NEG Assessment/Plan Assessment/Plan A- 57yoF with acute sigmoid diverticulitis with contained microperforation P- -follow labs this morning -Continue IV abx, IV hydration, NPO, serial exams, serial labs -dvt ppx- hep sq -GI prophylaxis with Protonix -Fioricet for migraine (? 2/2 caffeine withdrawal) Core Measures Venous Thromboembolism VTE Risk Factors Acute Medical Illness No Mechanical VTE Prophylaxis d/t N/A MechProphylax Ordered No VTE Pharm Prophylaxis d/t NA PharmProphylax ordered
[2017-07-31 08:17] LABS: ABSOLUTE BASOPHIL COUNT 0 /CUMM (0.0-0.2); ABSOLUTE EOSINOPHIL COUNT 0.1 /CUMM (0.0-0.7); BASOPHIL % 0.3 % (0.0-2.0)
[2017-07-31 08:53] LABS: ABSOLUTE GRANULOCYTE CT 8.8 /CUMM (1.4-6.5); ABSOLUTE LYMPH COUNT 3.1 /CUMM (1.2-3.4); ABSOLUTE MONOCYTE COUNT 0.7 /CUMM (0.10-0.60); EOSINOPHIL % 0.9 % (0-5); GRANULOCYTE % 68.9 % (42.2-75.2); MEAN CORPUSCULAR HGB 29.9 PG (27.0-31.0); MEAN CORPUSCULAR VOLUME 88.1 FL (81.0-99.0); MEAN PLATELET VOLUME 8.2 FL (7.4-10.4); PLATELET COUNT 228 /CUMM (130-400); RBC DISTRIBUTION WIDTH 14.7 % (11.5-14.5); RED BLOOD CELL CT 3.84 /CUMM (4.20-5.40); WHITE BLOOD CELL COUNT 12.7 /CUMM (4.8-10.8)
[2017-07-31 08:59] LABS: HEMATOCRIT 33.8 % (37-47)
[2017-07-31 14:57] VITALS: BP 125/64
[2017-07-31 21:40] VITALS: BP 110/80
[2017-08-01 07:09] VITALS: BP 102/68; BP 118/84
--- NOTE | 2017-08-01 08:10 | PN- General Surgery ---
See Addendum Subjective Subjective: Pt is anxious to eat and go home - however she states that her pain is really unchanged and she has had pain and some nausea with ice chips. Abdominall pain is tolerable with toradol - Also complaining of migraine - better with fioricet. Objective Vital Signs and I&Os Vital Signs Date Time Temp Pulse Resp B/P B/P Pulse O2 O2 Flow FiO2 Mean Ox Delivery Rate 08/01 0709 97.8 79 18 102/68 96 07/31 2140 98.2 86 17 110/80 94 Room Air 07/31 1457 98.3 111 20 125/64 96 Room Air Intake & Output 08/01 1600 08/01 0800 08/01 0000 07/31 1600 07/31 0800 07/31 0000 Intake Total 9163 480 1713 1200 875 Output Total 300 500 Balance 5286 121 5969 900 375 Intake, IV 3186 910 3571 1200 875 Intake, Oral 60 0 0 0 Number 0 0 0 Bowel Movements Output, Urine 300 500 Physical Exam: afebrile, VSS, HR 80's this morning - 110 last night General: alert and oriented times three Chest: clear anteriorly bilaterally, RRR Abd: soft, does not appear distended although pt states that she looks "bloated ", tender to even mild palpation in the LLQ, nontender elsewhere, hypoactive bowel sounds but present Ext: warm no edema Current Medications: Current Medications Sig/Marixa Start time Last Medication Dose Route Stop Time Status Admin Acetaminophen 650 MG Q4P PRN 07/30 1245 AC PO Acetaminophen/ 1 TAB Q4P PRN 07/31 0745 AC 08/01 Butalbital/Caffeine PO 0524 Ampicillin Sodium/ 1,500 MG Q6 07/30 1800 AC 08/01 Sulbactam Sodium IV 0523 Sodium Chloride 100 ML Dextrose/Sodium 1,000 ML .Q8H 07/30 1245 AC 08/01 Chloride IV 0523 Heparin Sodium 5,000 UNIT Q8 07/30 1400 AC 08/01 (Porcine) SC 0522 Ketorolac 15 MG Q8P PRN 07/30 1700 AC 08/01 Tromethamine IV 0626 Morphine Sulfate 2 MG Q3P PRN 07/30 1245 AC 07/31 IV 0459 Ondansetron HCl 4 MG Q6-PRN PRN 07/30 1245 AC 07/31 IV 0508 Pantoprazole Sodium 40 MG DAILY 07/31 1000 AC 07/31 IV 0914 Patient Medication 1 ED ONE ONE 07/31 1445 DC 07/31 Teaching ED 07/31 1446 1437 Promethazine HCl 25 MG Q4P PRN 07/31 0900 AC 07/31 IV 08/07 0859 0914 Assessment/Plan Assessment/Plan 57yo female with diverticulitis/micro perf admitted for medical management stable for now - requiring some pain meds - no narcotics since yesterday morning Continue npo/ivf continue iv antibiotics - unasyn continue protonix IV morphine IV for breakthrough if needed follow up labwork - just ordered Core Measures Venous Thromboembolism VTE Risk Factors Acute Medical Illness No Mechanical VTE Prophylaxis d/t N/A MechProphylax Ordered No VTE Pharm Prophylaxis d/t NA PharmProphylax ordered
[2017-08-01 09:09] LABS: ABSOLUTE BASOPHIL COUNT 0.1 /CUMM (0.0-0.2); ABSOLUTE EOSINOPHIL COUNT 0.3 /CUMM (0.0-0.7); ABSOLUTE GRANULOCYTE CT 4.1 /CUMM (1.4-6.5); ABSOLUTE LYMPH COUNT 4.3 /CUMM (1.2-3.4); ABSOLUTE MONOCYTE COUNT 0.5 /CUMM (0.10-0.60); BASOPHIL % 0.6 % (0.0-2.0); EOSINOPHIL % 3.4 % (0-5); GRANULOCYTE % 44.8 % (42.2-75.2); HEMATOCRIT 32.7 % (37-47); MEAN CORPUSCULAR HGB 29.9 PG (27.0-31.0); MEAN CORPUSCULAR HGB CONC 34.1 G/DL (33.0-37.0); MEAN CORPUSCULAR VOLUME 87.8 FL (81.0-99.0); PLATELET COUNT 228 /CUMM (130-400); RBC DISTRIBUTION WIDTH 14.7 % (11.5-14.5); RED BLOOD CELL CT 3.72 /CUMM (4.20-5.40); WHITE BLOOD CELL COUNT 9.3 /CUMM (4.8-10.8)
[2017-08-01 14:50] VITALS: BP 120/80
[2017-08-01 22:19] VITALS: BP 118/80
[2017-08-02 06:50] VITALS: BP 115/80
--- NOTE | 2017-08-02 07:32 | PN- General Surgery ---
See Addendum Subjective Subjective: tolerating clears, no n/v. some abd pain, helped with pain meds. +oob, ambulating, +flatus, no bm. main concern is "funny smelling urine" Objective Vital Signs and I&Os Vital Signs Date Time Temp Pulse Resp B/P B/P Pulse O2 O2 Flow FiO2 Mean Ox Delivery Rate 08/02 0650 98.5 79 20 115/80 93 Room Air 08/01 2219 98.9 79 18 118/80 93 Room Air 08/01 1450 97.7 75 18 120/80 94 Room Air Intake & Output 08/02 0800 08/02 0000 08/01 1600 08/01 0800 08/01 0000 07/31 1600 Intake Total 1480 1825 1000 2763 167 7243 Output Total 800 850 Balance 1480 6195 910 3575 395 1000 Intake, IV 9605 149 0428 2433 400 1074 Intake, Oral 240 950 0 60 0 0 Number 0 0 0 0 0 Bowel Movements Output, Urine 800 850 Physical Exam: gen- nad card- s1s2 rrr pulm- ctab abd- obese, soft, ttp llq and subprapubic. nontender elsewhere. +bs. no r/g. ext- calves soft nt Current Medications: Current Medications Sig/Marixa Start time Last Medication Dose Route Stop Time Status Admin Acetaminophen 650 MG Q4P PRN 07/30 1245 AC PO Acetaminophen/ 1 TAB Q4P PRN 07/31 0745 AC 08/02 Butalbital/Caffeine PO 0459 Ampicillin Sodium/ 1,500 MG Q6 07/30 1800 AC 08/02 Sulbactam Sodium IV 0500 Sodium Chloride 100 ML Dextrose/Sodium 1,000 ML .Q8H 07/30 1245 DC 08/02 Chloride IV 0442 Heparin Sodium 5,000 UNIT Q8 07/30 1400 AC 08/02 (Porcine) SC 0459 Ketorolac 15 MG Q8P PRN 07/30 1700 AC 08/02 Tromethamine IV 0459 Morphine Sulfate 2 MG Q3P PRN 07/30 1245 DC 08/01 IV 2256 Ondansetron HCl 4 MG Q6-PRN PRN 07/30 1245 AC 07/31 IV 0508 Pantoprazole Sodium 40 MG DAILY 07/31 1000 AC 08/01 IV 0906 Promethazine HCl 25 MG Q4P PRN 07/31 0900 AC 07/31 IV 08/07 0859 0914 Results Last 48 Hours of Labs: Laboratory Tests 08/01 0825 Chemistry Sodium (137 - 145 mmol/L) 143 Potassium (3.5 - 5.1 mmol/L) 3.9 Chloride (98 - 107 mmol/L) 108 H Carbon Dioxide (22 - 30 mmol/L) 27 Anion Gap (5 - 16) 8 BUN (7 - 17 mg/dL) 10 Creatinine (0.5 - 1.0 mg/dL) 0.7 Estimated GFR (>60 ml/min) > 60 BUN/Creatinine Ratio (7 - 25 %) 14.3 Hematology CBC w Diff NO MAN DIFF REQ WBC (4.8 - 10.8 /CUMM) 9.3 RBC (4.20 - 5.40 /CUMM) 3.72 L Hgb (12.0 - 16.0 G/DL) 11.1 L Hct (37 - 47 %) 32.7 L MCV (81.0 - 99.0 FL) 87.8 MCH (27.0 - 31.0 PG) 29.9 MCHC (33.0 - 37.0 G/DL) 34.1 RDW (11.5 - 14.5 %) 14.7 H Plt Count (130 - 400 /CUMM) 228 MPV (7.4 - 10.4 FL) 8.0 Gran % (42.2 - 75.2 %) 44.8 Lymphocytes % (20.5 - 51.1 %) 46.0 Monocytes % (1.7 - 9.3 %) 5.2 Eosinophils % (0 - 5 %) 3.4 Basophils % (0.0 - 2.0 %) 0.6 Absolute Granulocytes (1.4 - 6.5 /CUMM) 4.1 Absolute Lymphocytes (1.2 - 3.4 /CUMM) 4.3 H Absolute Monocytes (0.10 - 0.60 /CUMM) 0.5 Absolute Eosinophils (0.0 - 0.7 /CUMM) 0.3 Absolute Basophils (0.0 - 0.2 /CUMM) 0.1 Assessment/Plan Assessment/Plan A- 57yoF HD3 with microperf sigmoid diverticulitis, tolerating clear liquids though still quite ttp in LLQ, though feels better and WBC normalized yesterday. Complaints of malodorus urine- ?medication side effect. P- keep clrs. HL. ?aat later cont abx hep sq, alps, oob, ambulate check ua dc iv pain meds will dw attending Core Measures Venous Thromboembolism VTE Risk Factors Acute Medical Illness No Mechanical VTE Prophylaxis d/t N/A MechProphylax Ordered No VTE Pharm Prophylaxis d/t NA PharmProphylax ordered
[2017-08-02 14:16] VITALS: BP 132/84
--- NOTE | 2017-08-02 14:51 | Patient Discharge Instructions ---
Discharge Instructions General Discharge Information You were seen/treated for: diverticulitis You had these procedures: none Watch for these problems: fever over 101 Call Surgeon to remove: Other (FOLLOW-UP IN 7-10 DAYS) Special Instructions: MUST TAKE ENTIRE 7-DAY COURSE OF ANTIBIOTICS Diet Recommended Diet: Low Residue Activity Activity Self Limited: Yes Acute Coronary Syndrome Inclusion Criteria At DC or during hospital stay patient has or had the following: ACS DIAGNOSIS No Discharge Core Measures Meds if any: Prescribed or Continued at Discharge Meds if any: NOT Prescribed or Continued at Discharge Congestive Heart Failure Inclusion Criteria At DC or during hospital stay patient has or had the following: CHF DIAGNOSIS No Discharge Core Measures Meds if any: Prescribed or Continued at Discharge Meds if any: NOT Prescribed or Continued at Discharge Cerebrovascular accident Inclusion Criteria At DC or during hospital stay patient has or had the following: CVA/TIA Diagnosis No Discharge Core Measures Meds if any: Prescribed or Continued at Discharge Meds if any: NOT Prescribed or Continued at Discharge Venous thromboembolism Inclusion Criteria VTE Diagnosis No VTE Type NONE VTE Confirmed by (Test) NONE Discharge Core Measures - Per Current guidelines, there needs to be overlap - treatment for the first 5 days of Warfarin therapy. - If discharged on Warfarin prior to 5 days of - overlap therapy, the patient will need to be - assessed for post discharge needs including - *Post discharge parental anticoagulation - *Warfarin and/or parental anticoagulation education - *Follow up date to check INR post discharge At least 5 days overlap therapy as Inpatient No Meds if any: Prescribed or Continued at Discharge Note: Overlap Therapy is Warfarin and Anticoagulant Meds if any: NOT Prescribed or Continued at Discharge
--- NOTE | 2017-08-02 17:07 | Surgical Discharge Summary ---
Visit Information Visit Dates Admission Date: 07/30/17 Discharge Date: 08/02/17 History of Present Illness Chief Complaint: diverticulitis Medical History Blood Transfusion Hx: No Neurological: NONE EENT: hearing loss, meniere's disease Cardiovascular: NONE Respiratory: NONE Gastrointestinal: GERD Hepatic: NONE Renal: NONE Musculoskeletal: NONE Psychiatric: NONE Endocrine: NONE Blood Disorders: NONE Cancer(s): NONE LINE PILOT/Reproductive: NONE History of MRSA: No History of VRE: No History of CDIFF: No Isolation History: Standard Influenza Vaccine: 04/21/17 Surgical History Pertinent Surgical History: hysterectomy (in late 20s) Family History Relations & Conditions If Any: MOTHER Coronary artery disease FATHER FH: diabetes mellitus Psychosocial History Where Do You Live? Home Who Do You Live With? Significant Other Services at Home: None What is Your Primary Language? Occitan ETOH Use: denies use Review of Systems: see preop Hospital Course Course Attending Physician: Benigno LENTZ,Jh Madera Primary Care Physician: Patient Has No Primary Care Dr Hospital Course: Patient admitted to surgical service and begun on IV antibiotics and bowel rest for first episode of clinically diagnosed diverticulitis. After 2 days she had resolution of her pain and return of bowel function. Her leukocytosis resolved. She was started on diet which was advanced prior to being discharged home Allergies: Coded Allergies: NO KNOWN ALLERGIES (03/21/11) Disposition Summary Disposition Principal Diagnosis: Diverticulitis Additional Diagnosis: None Discharge Disposition: home or self care Discharge Instructions General Discharge Information Code Status: Full Code Patient's Diet: Regular low fiber Patient's Activity: Ad tanya. Follow-Up Instructions/Appts: 2 weeks
[2017-08-02] MEDS ORDERED: AUGMENTIN 875-1 EACH PO (17:09)
== END 2017-08-02 18:08 | DRG 392 ==
LOC: ERH 07:17 → 2NB 10:33 → ERHI 10:33 → ENTRNSPT 13:24 → EDTRNSPTTYP 13:26 → ENRESERV 13:29 → CMPTRNSPT 14:14 → ENTRNSPT 14:30 → EDTRNSPT 14:45 → EDTRNSPTSTS 14:45 → 2NB 14:48 → CMPTRNSPT 14:59 → 2NB 08-02 18:08
PROVIDERS: Emergency Medicine; Physician Assistant Surgical
DX: K57.20 Diverticulitis of large intestine with perforation and abscess without bleeding (principal); D72.829 Elevated white blood cell count, unspecified; H81.09 Meniere's disease, unspecified ear; K21.9 Gastro-esophageal reflux disease without esophagitis; H91.90 Unspecified hearing loss, unspecified ear; Z90.710 Acquired absence of both cervix and uterus
CPT/HCPCS: 2NBP; 36415; 74177; 81003; 82436; 96372; 96374; 96375; J1644; J1885; J2405; J2550; J7042

== ENCOUNTER 2017-12-27 09:58 | Emergency (ER) | payer OTHER, MEDICARE ==
[~2017-12-27] VITALS: Ht 175.3 cm; Wt 88.5 kg
[~2017-12-27 09:58] MED LIST changes: +APPLE CIDER VI300 MG PO; +AUGMENTIN 875-1 EACH PO; +MULTIVITAMINS1 EAC9 PO; +VITAMIN C500 M6 PO
[2017-12-27] MEDS ORDERED: OMEPRAZOLE40 M1 PO (11:05)
[2017-12-27] MEDS ORDERED: DICYCLOMINE HCL10 M1 PO (11:05)
[2017-12-27] MEDS ORDERED: PRAVACHOL20 M2 PO (11:06)
--- NOTE | 2017-12-27 11:08 | ED GI/GU/ABDOMINAL COMPLAINT ---
History of Present Illness General Chief Complaint: General Adult Stated Complaint: ABD PAIN AND HEAD ACHE LOWER BACK PAIN Source: patient Exam Limitations: no limitations Vital Signs & Intake/Output Vital Signs & Intake/Output Vital Signs Date Time Temp Pulse Resp B/P B/P Pulse O2 O2 Flow FiO2 Mean Ox Delivery Rate 12/27 1411 97.5 80 18 122/63 97 12/27 1114 98.0 12/27 1102 Room Air 12/27 1037 97.4 82 18 124/72 98 Room Air Room Air Allergies Coded Allergies: NO KNOWN ALLERGIES (03/21/11) Reconcile Medications Amoxicillin/Potassium Clav (Augmentin 875-125 Tablet) 875 MG-125 MG TABLET 1 TAB PO Q8H DIVERTICULITIS Ascorbate Calcium (Vitamin C) (Unknown Strength) TABLET (Unknown Dose) PO DAILY SUPPLEMENT (Reported) Cider Vinegar (Apple Cider Vinegar) (Unknown Strength) TABLET (Unknown Dose) PO DAILY SUPPLEMENT (Reported) Ciprofloxacin HCl (Cipro) 500 MG TABLET 1 TAB PO BID PRN pyelonephritis Dicyclomine HCl 10 MG CAPSULE 1 CAP PO Q6P PRN ABDOMINAL PAIN (Reported) Meloxicam (Mobic) 15 MG TABLET 1 TAB PO DAILY PRN headache Multiple Vitamin (Multivitamins) 1 EACH TABLET 1 TAB PO DAILY SUPPLEMENT ( Reported) Omeprazole 40 MG CAPSULE.DR 1 CAP PO DAILY ACID REFLUX (Reported) Pravastatin Sodium (Pravachol) 20 MG TABLET 1 TAB PO DAILY HIGH CHOLESTROL ( Reported) Triage Note: PT TO ED WITH C/O BURNING AND PRESSURE AND FREQUENCY WITH URINATION AND LOW BACK PAIN "I THINK I HAVE A KIDNEY INFECTION". Triage Nurses Notes Reviewed? yes ? N Is pt currently ? No Onset: Gradual Duration: getting worse Timing: recent history Location: left lower quadrant Radiation: back HPI: Patient is a 57-year-old female with a past medical history recent diverticulitis with perforation in July 2017 which no surgical intervention was performed patient presented to emergency with concerns of a one-week history of left lower quadrant pain and concerns of a 3-4 day history of increased frequency of urination back pain and headache and generalized weakness. Patient can tolerate by mouth last bowel movement was within the last 24 hours no blood no melena. (Stoney Rios) Past History Travel History Traveled to [place] past 21 day No Medical History Any Pertinent Medical History? see below for history Neurological: NONE EENT: hearing loss, meniere's disease Cardiovascular: NONE Respiratory: NONE Gastrointestinal: GERD, DIVERTICULITIS Hepatic: NONE Renal: NONE Musculoskeletal: NONE Psychiatric: NONE Endocrine: NONE Blood Disorders: NONE Cancer(s): NONE IT LEAD/Reproductive: NONE History of MRSA: No History of VRE: No History of CDIFF: No Influenza Vaccine: 04/21/17 Surgical History Surgical History: hysterectomy (in late 20s) Psychosocial History Who do you live with Significant Other Services at Home None What is your primary language Belizean Tobacco Use: Never used ETOH Use: denies use Illicit Drug Use: denies illicit drug use Family History Family History, If Any: MOTHER Coronary artery disease FATHER FH: diabetes mellitus Hx Contributory? No (Stoney Rios) Review of Systems Review of Systems Constitutional: Reports: see HPI, malaise. EENTM: Reports: no symptoms. Respiratory: Reports: no symptoms. Cardiovascular: Reports: no symptoms. GI: Reports: see HPI, abdominal pain, nausea. Genitourinary: Reports: see HPI, frequency. Musculoskeletal: Reports: see HPI, back pain. Skin: Reports: no symptoms. Neurological/Psychological: Reports: see HPI, headache. Hematologic/Endocrine: Reports: no symptoms. Immunologic/Allergic: Reports: no symptoms. All Other Systems: Reviewed and Negative (Stoney Rios) Physical Exam Physical Exam General Appearance: no apparent distress, alert, comfortable Head: atraumatic Eyes: Bilateral: normal appearance, PERRL, EOMI. Ears, Nose, Throat, Mouth: moist mucous membrane Neck: normal inspection Respiratory: no respiratory distress Cardiovascular: regular rate/rhythm Gastrointestinal: left quadrant abdominal pain no peritoneal signs Back: right cva tenderness Extremities: normal range of motion Neurologic/Psych: no motor/sensory deficits, awake, alert Skin: intact, normal color Core Measures ACS in differential dx? No Sepsis Present: No Sepsis Focused Exam Completed? No (Stoney Rios) Progress Differential Diagnosis: AAA, AMI, appendicitis, biliary colic, bowel obstruction , colon cancer, cholecystitis, diverticulitis, endometritis, esophageal varices, gastritis, hepatitis, hernia, hemorrhoids, ischemic bowel, inflamm bowel dis, kidney stone, Sue-Jean-Paul tear, ovarian cyst, ovarian torsion, pancreatitis, PID/cervicitis, peptic ulcer, PUD/GERD, perforated viscous, SBO, UTI/pyelo Plan of Care: Orders Procedure Date/time Status LACTIC ACID 12/27 1121 Complete COMPREHENSIVE METABOLIC PANEL 12/27 1121 Complete CBC WITHOUT DIFFERENTIAL 12/27 112 Complete Add-on Test (ER Only) 12/27 1115 Active CULTURE,URINE 12/27 1053 Active URINALYSIS 12/27 1040 Complete Laboratory Tests 12/27/17 1421: Lactic Acid Cancelled 12/27/17 1130: Anion Gap 7, Estimated GFR > 60, BUN/Creatinine Ratio 22.9, Glucose 96, Lactic Acid 1.7, Calcium 9.9, Total Bilirubin 0.5, AST 40 H, ALT 71 H, Alkaline Phosphatase 72, Total Protein 7.3, Albumin 4.6, Globulin 2.7, Albumin/Globulin Ratio 1.7, CBC w Diff MAN DIFF ORDERED, RBC 4.54, MCV 88.3, MCH 30.0, MCHC 34.0, RDW 14.0, MPV 8.0, Gran % 46.4, Lymphocytes % 44.5, Monocytes % 6.5, Eosinophils % 2.1, Basophils % 0.5, Absolute Granulocytes 3.9, Segmented Neutrophils 45, Band Neutrophils 1, Absolute Lymphocytes 3.8 H, Lymphocytes 48, Monocytes 3, Absolute Monocytes 0.5, Eosinophils 3, Absolute Eosinophils 0.2, Absolute Basophils 0, Platelet Estimate ADEQUATE, Normochromic RBCs VERIFIED 12/27/17 1053: Urinalysis LIGHT H, Urine Color YEL, Urine Clarity HAZY H, Urine pH 6.0, Ur Specific [place] 1.025, Urine Protein NEG, Urine Ketones NEG, Urine Nitrite NEG, Urine Bilirubin NEG, Urine Urobilinogen 0.2, Ur Leukocyte Esterase MOD H, Ur Microscopic SEDIMENT EXAMINED, Urine RBC RARE, Urine WBC 50-75 H, Ur Epithelial Cells FEW, Urine Bacteria RARE H, Hyaline Casts 1-3 H, Urine Mucus RARE, Micro UA Comment BUDDING YEAST H, Urine Hemoglobin NEG, Urine Glucose NEG Microbiology 12/27 1053 URINE ROUT: Urine Culture - RECD Patient on initial examination and resting comfortably bedside complaining of headache and left lateral quadrant pain CT scan will be evaluated for concerns of recent history of diverticulitis with perforation patient also has CVA tenderness and urinary tract infection CT scan was resulted showing no acute findings discussed results with patient patient was able tolerate by mouth patient had improvement of symptoms prior to discharge. Diagnostic Imaging: Viewed by Me: CT Scan. Radiology Impression: no acute abnormality Initial ED EKG: none Comments: PATIENT: HOMER YEPEZ PRESENT AGE: 57 PATIENT ACCOUNT NO: [id number] : 60 LOCATION: [facility] ORDERING PHYSICIAN: Stoney FITZGERALD SERVICE DATE: 12/27/17 EXAM TYPE: CAT - CT ABD & PELVIS W IV CONTRAST EXAMINATION: CT ABDOMEN AND PELVIS WITH CONTRAST CLINICAL INFORMATION: Left lower quadrant pain. History of diverticulitis, now pyelonephritis. COMPARISON: The scan of the abdomen and pelvis dated 07/30/2017, 05/26/2016, and 08/08/2012. TECHNIQUE: Multidetector CT volumetric acquisition of the abdomen and pelvis was performed after the administration of 95 mL of intravenous Optiray 320. The data set was reformatted in the sagittal and coronal planes and reviewed on an independent workstation. DLP: 367.40 mGy-cm. FINDINGS: LOWER CHEST: Linear atelectasis is seen in the right middle lobe. Focal opacity is seen in the lingula, adjacent to the fissure, incompletely visualized and likely part of some mild atelectatic changes. Small calcified granuloma seen in the left lung base (series 2, image 7). LIVER, GALLBLADDER, BILIARY TREE: Liver normal size and diffusely lower in attenuation compared to the spleen, consistent with hepatic steatosis. There is a small 0.5 cm focus of hyperenhancement seen in the hepatic dome (series 2, image 6), segment 8, unchanged dating back to 03/21/2011, consistent with a benign finding, such as a focal vascular malformation. Patchy area of fatty sparing is seen in the gallbladder fossa. No focal cystic or solid mass or intra-or extrahepatic ductal dilatation. Hepatic and portal veins patent. Gallbladder partially distended and within normal limits. PANCREAS: Mild atrophy of the pancreatic parenchyma is seen with fatty infiltration in the pancreatic head. No ductal dilatation, mass, or surrounding stranding. SPLEEN: Normal size and appearance. 2 accessory splenules are seen along the anterior inferior margin of the spleen, measuring 1.3 cm and 0.9 cm in diameter. Splenic vein patent. ADRENAL GLANDS AND KIDNEYS: Adrenal glands normal. Kidneys bilaterally symmetric in size and function. There is a 0.7 cm low-attenuation mass in the mid left kidney, too small to further characterize but similar in size dating back to 03/21/2011, consistent with a benign finding, such as a tiny cyst (series 2, image 29). No suspicious or new focal mass, hydronephrosis, nephrolithiasis or perinephric stranding. URETERS AND BLADDER: Ureters decompressed and within normal limits. Bladder partially distended and therefore suboptimally assessed, but grossly unremarkable. No bladder calculi. PELVIC ORGANS: The patient is status post what appears to be a supracervical hysterectomy and presumably oophorectomy. Correlation with patient's clinical history is recommended. No suspicious adnexal mass. GASTROINTESTINAL TRACT: A few scattered sigmoid colonic and transverse colonic diverticula are seen with no evidence of acute diverticulitis. Small and large bowel loops decompressed and unremarkable, including the terminal ileum. Appendix in right lower quadrant retrocecal in location and normal in appearance. LYMPHOVASCULAR STRUCTURES: Abdominal aorta normal in caliber. No periaortic collections. Incidentally noted is a retroaortic left renal vein. No abdominal or pelvic adenopathy or free fluid collection. BONES: Small amount of vertebral spurring is seen at the L1-2 and L2-3 and L5-S1 levels. Mild facet arthropathy is seen at the lumbosacral junction. No suspicious bone findings. IMPRESSION: 1. A few scattered sigmoid and transverse colonic diverticula are seen with no evidence of acute diverticulitis. Previously seen left lower quadrant diverticulitis has resolved. 2. The kidneys bilaterally are symmetric in size and function with no evidence of hydronephrosis, nephrolithiasis, focal renal abscess or perinephric stranding. 3. Tiny stable mid left renal probable cyst is seen, unchanged dating back to 03/21/2011. 4. Diffuse hepatic steatosis with patchy area of fatty sparing near the gallbladder fossa. Tiny focus of hyperenhancement in the hepatic dome is unchanged dating back to 03/21/2011, consistent with a benign finding, such as a focal vascular malformation. 5. Fatty infiltration of the pancreatic head. 6. Scattered areas of atelectasis in the lungs bilaterally and small calcified granuloma in the left lung base. DICTATED BY: Dai Dow MD DATE/TIME DICTATED:12/27/171430 MEDIA LIAISON OFFICER:MERLE DATE/TIME TRANSCRIBED:12/27/171430 (Stoney Rios) Departure Departure Disposition: HOME OR SELF CARE Condition: Stable Clinical Impression Primary Impression: Pyelonephritis Referrals: Rebecca Galdamez APRN (PCP/Family) Additional Instructions: As discussed begin the prescription of ciprofloxacin as directed for the full course begin the prescription meloxicam for headaches, begin drinking plain water for hydration follow-up with primary care doctor on Monday if no better. If symptoms worsen return to emergency room for prescription is waiting at [facility] Departure Forms: Customer Survey General Discharge Information Prescriptions: Current Visit Scripts Ciprofloxacin HCl (Cipro) 1 TAB PO BID PRN pyelonephritis #20 TAB Meloxicam (Mobic) 1 TAB PO DAILY PRN headache #10 TAB (Stoney Rios) PA/MENDING CARRIER Co-Sign Statement Statement: ED Attending supervision documentation- [] I saw and evaluated the patient. I have also reviewed all the pertinent lab results and diagnostic results. I agree with the findings and the plan of care as documented in the PA's/MENDING CARRIER's documentation. [x] I have reviewed the ED Record and agree with the PA's/MENDING CARRIER's documentation. [] Additions or exceptions (if any) to the PAs/MENDING CARRIER's note and plan are summarized below: [] (Vitaly Decker DO)
[2017-12-27 11:50] LABS: ABSOLUTE BASOPHIL COUNT 0 /CUMM (0.0-0.2); ABSOLUTE EOSINOPHIL COUNT 0.2 /CUMM (0.0-0.7); ABSOLUTE GRANULOCYTE CT 3.9 /CUMM (1.4-6.5); ABSOLUTE LYMPH COUNT 3.8 /CUMM (1.2-3.4); ABSOLUTE MONOCYTE COUNT 0.5 /CUMM (0.10-0.60); BASOPHIL % 0.5 % (0.0-2.0); EOSINOPHIL % 2.1 % (0-5); GRANULOCYTE % 46.4 % (42.2-75.2); HEMATOCRIT 40.1 % (37-47); MEAN CORPUSCULAR VOLUME 88.3 FL (81.0-99.0); PLATELET COUNT 253 /CUMM (130-400); RED BLOOD CELL CT 4.54 /CUMM (4.20-5.40); WHITE BLOOD CELL COUNT 8.5 /CUMM (4.8-10.8)
[2017-12-27 14:11] VITALS: BP 122/63
--- NOTE | 2017-12-27 14:51 | CT SCAN REPORT ---
EXAMINATION: CT ABDOMEN AND PELVIS WITH CONTRAST CLINICAL INFORMATION: Left lower quadrant pain. History of diverticulitis, now pyelonephritis. COMPARISON: The scan of the abdomen and pelvis dated 07/30/2017, 05/26/2016, and 08/08/2012. TECHNIQUE: Multidetector CT volumetric acquisition of the abdomen and pelvis was performed after the administration of 95 mL of intravenous Optiray 320. The data set was reformatted in the sagittal and coronal planes and reviewed on an independent workstation. DLP: 367.40 mGy-cm. FINDINGS: LOWER CHEST: Linear atelectasis is seen in the right middle lobe. Focal opacity is seen in the lingula, adjacent to the fissure, incompletely visualized and likely part of some mild atelectatic changes. Small calcified granuloma seen in the left lung base (series 2, image 7). LIVER, GALLBLADDER, BILIARY TREE: Liver normal size and diffusely lower in attenuation compared to the spleen, consistent with hepatic steatosis. There is a small 0.5 cm focus of hyperenhancement seen in the hepatic dome (series 2, image 6), segment 8, unchanged dating back to 03/21/2011, consistent with a benign finding, such as a focal vascular malformation. Patchy area of fatty sparing is seen in the gallbladder fossa. No focal cystic or solid mass or intra-or extrahepatic ductal dilatation. Hepatic and portal veins patent. Gallbladder partially distended and within normal limits. PANCREAS: Mild atrophy of the pancreatic parenchyma is seen with fatty infiltration in the pancreatic head. No ductal dilatation, mass, or surrounding stranding. SPLEEN: Normal size and appearance. 2 accessory splenules are seen along the anterior inferior margin of the spleen, measuring 1.3 cm and 0.9 cm in diameter. Splenic vein patent. ADRENAL GLANDS AND KIDNEYS: Adrenal glands normal. Kidneys bilaterally symmetric in size and function. There is a 0.7 cm low-attenuation mass in the mid left kidney, too small to further characterize but similar in size dating back to 03/21/2011, consistent with a benign finding, such as a tiny cyst (series 2, image 29). No suspicious or new focal mass, hydronephrosis, nephrolithiasis or perinephric stranding. URETERS AND BLADDER: Ureters decompressed and within normal limits. Bladder partially distended and therefore suboptimally assessed, but grossly unremarkable. No bladder calculi. PELVIC ORGANS: The patient is status post what appears to be a supracervical hysterectomy and presumably oophorectomy. Correlation with patient's clinical history is recommended. No suspicious adnexal mass. GASTROINTESTINAL TRACT: A few scattered sigmoid colonic and transverse colonic diverticula are seen with no evidence of acute diverticulitis. Small and large bowel loops decompressed and unremarkable, including the terminal ileum. Appendix in right lower quadrant retrocecal in location and normal in appearance. LYMPHOVASCULAR STRUCTURES: Abdominal aorta normal in caliber. No periaortic collections. Incidentally noted is a retroaortic left renal vein. No abdominal or pelvic adenopathy or free fluid collection. BONES: Small amount of vertebral spurring is seen at the L1-2 and L2-3 and L5-S1 levels. Mild facet arthropathy is seen at the lumbosacral junction. No suspicious bone findings. IMPRESSION: 1. A few scattered sigmoid and transverse colonic diverticula are seen with no evidence of acute diverticulitis. Previously seen left lower quadrant diverticulitis has resolved. 2. The kidneys bilaterally are symmetric in size and function with no evidence of hydronephrosis, nephrolithiasis, focal renal abscess or perinephric stranding. 3. Tiny stable mid left renal probable cyst is seen, unchanged dating back to 03/21/2011. 4. Diffuse hepatic steatosis with patchy area of fatty sparing near the gallbladder fossa. Tiny focus of hyperenhancement in the hepatic dome is unchanged dating back to 03/21/2011, consistent with a benign finding, such as a focal vascular malformation. 5. Fatty infiltration of the pancreatic head. 6. Scattered areas of atelectasis in the lungs bilaterally and small calcified granuloma in the left lung base.
[2017-12-27] MEDS ORDERED: CIPRO500 M1 PO (15:10)
[2017-12-27] MEDS ORDERED: MOBIC15 M1 PO (15:10)
== END 2017-12-27 15:27 ==
LOC: ERH 09:58
PROVIDERS: Physician Assistant
DX: N12 Tubulo-interstitial nephritis, not specified as acute or chronic (principal); R51 Headache; M54.5 Low back pain; R10.32 Left lower quadrant pain; R53.1 Weakness; R35.0 Frequency of micturition
CPT/HCPCS: 74177; 81001; 87086; 96374; 96375; J0696; J1885